=== PATIENT | male | born 1970 | race Caucasian/White ===

== ENCOUNTER → 2017-07-23 | Outpatient (CLI) | payer MEDICARE, OTHER ==
--- NOTE | 2017-07-23 19:16 | MR ---
EXAMINATION TYPE: MR lumbar spine wo con DATE OF EXAM: 07/23/2017 COMPARISON: 05/14/2015 HISTORY: 47-year-old male with low back pain TECHNIQUE: Multiplanar, multisequence images of the lumbar spine were acquired. FINDINGS: Vertebral body heights are preserved and alignment maintained. No suspicious bone marrow replacement. Conus medullaris is normal. Degenerative disc disease at L4-L5 and L5-S1 characterized by increasing, now moderate disc desiccati on, mild disc space narrowing, also increased, and diffuse bulging disc. From T12 through L4 levels, no significant spinal canal or neuroforaminal stenosis. At L4-L5, diffuse disc bulge with a new superimposed central disc protrusion. Images cause overall mi ld spinal canal stenosis increased from prior. No significant neural foraminal stenosis on either ronal e. At L5-S1, diffuse disc bulge with new superimposed right paracentral disc extrusion. Similar mild spi nal canal stenosis at this level. Similar moderate right and mild left neuroforaminal stenosis. Disc material closely approaches and may abut the traversing left S1 nerve root and also not closely appro aches and may abut the traversing right S1 nerve root as well. No prevertebral or paravertebral soft tissue abnormality seen. IMPRESSION: 1. Moderate degenerative disc disease L4-L5 and L5-S1 progressed from 2015 now with greater degree of disc desiccation, mild disc height loss, and new focal disc herniations (central disc protrusion at L4-L5 and a right paracentral disc extrusion at L5-S1). These cause now mild spinal canal stenoses at these levels. 2. Similar moderate right and mild left neuroforaminal stenosis at L5-S1. However, disc material now closely approaches and may abut the bilateral traversing S1 nerve roots at this level.
== END | disposition home or self-care (01) ==
LOC: RADMRIMAIN 17:12
PROVIDERS: ATTEND Internal Medicine
DX: M48.07 Spinal stenosis, lumbosacral region (principal); M51.36 Other intervertebral disc degeneration, lumbar region; M51.27 Other intervertebral disc displacement, lumbosacral region
CPT/HCPCS: 72148

== ENCOUNTER 2024-01-17 23:15 | Emergency (ER) | payer MEDICARE, OTHER ==
[2024-01-17 23:21] VITALS: TEMP 99.2
--- NOTE | 2024-01-17 23:48 | ED ---
General Adult HPI - General Chief complaint: Urogenital Stated complaint: groin issue Time Seen by Provider: 01/17/24 23:29 Source: patient Mode of arrival: ambulatory Limitations: no limitations - History of Present Illness Initial comments: Patient is 54-year-old man who presents to the evaluation of swelling in the left inguinal area. The patient states that he noticed swelling in his groin starting about a week ago. He states that it has progressively gotten larger and is now causing pain. Patient relates that he had a similar episode about 2 years ago and that the [facility] clinic treated him with antibiotics and it resolved. Patient has not noted any change in urination or bowel movements. No fever or chills. No vomiting or other symptoms Onset/Timin -: week(s) Location: abdomen Radiation: non-radiation Quality: aching Consistency: constant Improves with: none Worsens with: movement Associated Symptoms: denies other symptoms Treatments Prior to Arrival: none - Related Data Home Medications Medication Instructions Recorded Confirmed Albuterol Nebulized [Ventolin 2.5 mg INHALATION QID PRN 01/05/14 02/23/14 Nebulized] Amitriptyline HCl [Elavil] 25 mg PO HS 01/05/14 02/24/14 Aspirin 81 mg PO DAILY 01/05/14 02/24/14 Divalproex Sodium [Depakote ER] 1,000 mg PO BID 01/05/14 02/23/14 Fexofenadine HCl 180 mg PO DAILY 01/05/14 02/24/14 Furosemide [Lasix] 20 mg PO BID 01/05/14 02/24/14 Gabapentin [Neurontin] 600 mg PO QID 01/05/14 02/24/14 Lisinopril-Hctz 10-12.5 mg 1 each PO DAILY 01/05/14 02/24/14 [Zestoretic 10-12.5] Lovastatin [Mevacor] 40 mg PO HS 01/05/14 02/24/14 Nabumetone 750 mg PO BID 01/05/14 02/24/14 Nitroglycerin Sl Tabs [Nitrostat] 0.4 mg SUBLINGUAL Q5M PRN 01/05/14 02/23/14 OLANZapine [ZyPREXA] 10 mg PO DAILY 01/05/14 02/24/14 Omeprazole [PriLOSEC] 20 mg PO AC-BID 01/05/14 02/24/14 Potassium Chloride [Klor-Con 10] 10 meq PO DAILY 01/05/14 02/24/14 Sucralfate [Carafate] 1 gm PO AC-TID 01/05/14 02/24/14 Tolterodine Tartrate [Detrol LA] 4 mg PO DAILY 01/05/14 02/24/14 Venlafaxine HCl [Effexor] 75 mg PO BID 01/05/14 02/24/14 metFORMIN HCL [Glucophage] 500 mg PO DAILY 01/05/14 02/24/14 modafiniL [Provigil] 200 mg PO DAILY 01/05/14 02/24/14 oxyCODONE-APAP 5-325MG [Percocet 1 each PO Q6HR PRN 01/05/14 02/23/14 5-325 mg] rOPINIRole HCL [Requip] 4 mg PO BID 01/05/14 02/24/14 raNITIdine HCL [Zantac] 150 mg PO BID 01/05/14 02/24/14 Previous Rx's Medication Instructions Recorded Sulfamethox-Tmp 800-160Mg [Bactrim 1 each PO Q12HR 7 Days tab 02/24/14 DS 800-160 mg] Cyclobenzaprine [Flexeril] 10 mg PO TID #14 tab 03/26/15 Hydrocodone/Acetaminophen [[place] 1 each PO Q6HR PRN #20 tab 03/26/15 5-325] Ibuprofen [Motrin] 800 mg PO Q6HR PRN #20 tab 03/26/15 Sulfamethox-Tmp 800-160Mg [Bactrim 2 each PO Q12HR #28 tab 01/18/24 Ds] Allergies Allergy/AdvReac Type Severity Reaction Status Date / Time Iodinated Contrast Media AdvReac Unknown Verified 01/17/24 23:22 [Iodinated Contrast Media - IV Dye] morphine AdvReac Unknown Verified 01/17/24 23:22 Review of Systems ROS Statement: Those systems with pertinent positive or pertinent negative responses have been documented in the HPI. ROS Other: All systems not noted in ROS Statement are negative. Constitutional: Denies: fever, chills Respiratory: Denies: cough, dyspnea Cardiovascular: Denies: chest pain, palpitations, edema Gastrointestinal: Reports: as per HPI, abdominal pain. Denies: nausea, vomiting, diarrhea, constipation Genitourinary: Denies: dysuria, frequency, hematuria, testicular pain, testicular mass Musculoskeletal: Denies: back pain Skin: Denies: rash Neurological: Denies: headache Past Medical History Past Medical History: Diabetes Mellitus, Hyperlipidemia, Hypertension, Myocardial Infarction (LA) Additional Past Medical History / Comment(s): back pain, leg pain, neuropathy, degenerative disc disease, chronic right olecranon bursitis Last Myocardial Infarction Date:: unknown History of Any Multi-Drug Resistant Organisms: None Reported Past Surgical History: Heart Catheterization, Orthopedic Surgery Additional Past Surgical History / Comment(s): vascetomy, cyst on tailbone, Past Psychological History: Bipolar, Schizophrenia Past Alcohol Use History: None Reported Past Drug Use History: None Reported General Exam Limitations: no limitations General appearance: alert, in no apparent distress Head exam: Present: atraumatic, normocephalic Eye exam: Present: normal appearance. Absent: scleral icterus, conjunctival injection Neck exam: Present: normal inspection Respiratory exam: Present: normal lung sounds bilaterally. Absent: respiratory distress, wheezes, rales, rhonchi, stridor, accessory muscle use Cardiovascular Exam: Present: regular rate, normal rhythm, normal heart sounds. Absent: systolic murmur, diastolic murmur, rubs, gallop GI/Abdominal exam: Present: soft, tenderness (Left inguinal). Absent: distended, guarding, rebound, rigid, mass, hernia exam: Present: normal inspection, vertical testicular lie. Absent: testicular tenderness, urethral discharge, scrotal swelling Extremities exam: Present: normal inspection, normal capillary refill. Absent: pedal edema, calf tenderness Back exam: Present: normal inspection. Absent: CVA tenderness (R), CVA tenderness (L) Neurological exam: Present: alert Skin exam: Present: warm, dry, intact, normal color. Absent: rash Course Vital Signs 01/17/24 01/18/24 23:18 03:20 Temperature 99.2 F Pulse Rate 55 L 88 Respiratory 18 16 Rate Blood Pressure 129/89 154/99 O2 Sat by Pulse 93 L 98 Oximetry Medical Decision Making - Medical Decision Making The patient had CT scan of the abdomen pelvis which I interpreted as negative for acute hernia. Negative for abscess Was pt. sent in by a medical professional or institution (Dr., PA, ORTHOPAEDIC TECHNOLOGIST, urgent care, hospital, or long-term...) When possible be specific @ -[No] Did you speak to anyone other than the patient for history (EMS, parent, family, police, friend...)? What history was obtained from this source @ -[No] Did you review nursing and triage notes (agree or disagree)? Why? @ -[I reviewed and agree with nursing and triage notes] Were old charts reviewed (outside hosp., previous admission, EMS record, old EKG, old radiological studies, urgent care reports/EKG's, long-term records)? Report findings @ -[No old charts were reviewed] Differential Diagnosis (chest pain, altered mental status, abdominal pain women, abdominal pain men, vaginal bleeding, weakness, fever, dyspnea, syncope, headache, dizziness, GI bleed, back pain, seizure, CVA, palpatations, mental health, musculoskeletal)? @ -[Differential Abdominal Pain Men: Appendicitis, cholecystitis, diverticulosis, ischemic bowel, pancreatitis, hepatitis, UTI, gastroenteritis, AAA, incarcerated hernia, bowel obstruction, constipation, inflammatory bowel, hepatitis, peptic ulcer disease, splenic infarction, perforated viscus, testicular torsion, this is not meant to be an all-inclusive list EKG interpreted by me (3pts min.). @ -[As above] X-rays interpreted by me (1pt min.). @ -[None done] CT interpreted by me (1pt min.). @ -[I interpreted as above U/S interpreted by me (1pt. min.). @ -[None done] What testing was considered but not performed or refused? (CT, X-rays, U/S, labs)? Why? @ -[None] What meds were considered but not given or refused? Why? @ -[None] Did you discuss the management of the patient with other professionals (professionals i.e. RUIZ Rosario, ORTHOPAEDIC TECHNOLOGIST, lab, RT, psych nurse, clinical social worker, transformer stock clerk, teacher, guest relations officer, catalytic case operator)? Give summary @ -[No] Was smoking cessation discussed for >3mins.? @ -[No] Was critical care preformed (if so, how long)? @ -[No] Were there social determinants of health that impacted care today? How? (Homelessness, low income, unemployed, alcoholism, drug addiction, transportation, low edu. Level, literacy, decrease access to med. care, nursing home, rehab)? @ -[No] Was there de-escalation of care discussed even if they declined (Discuss DNR or withdrawal of care, Hospice)? DNR status @ -[No] What co-morbidities impacted this encounter? (DM, HTN, Smoking, COPD, CAD, Cancer, CVA, ARF, Chemo, Hep., AIDS, mental health diagnosis, sleep apnea, morbid obesity)? @ -[None] Was patient admitted / discharged? Hospital course, mention meds given and route, prescriptions, significant lab abnormalities, going to OR and other pertinent info. @ -[This patient is 54-year-old man here to have evaluation of left groin pain and swelling. The exam slightly limited as the patient was guarding the area. CT scan is obtained to rule out abscess that requires surgical drainage or the possibility of inguinal hernia. The patient is started on antibiotics. The appropriate further care and follow-up as discussed as well as return parameters Undiagnosed new problem with uncertain prognosis? @ -[No] Drug Therapy requiring intensive monitoring for toxicity (Heparin, Nitro, Insulin, Cardizem)? @ -[No] Were any procedures done? @ -[No] Diagnosis/symptom? @ -[Acute left inguinal cellulitis Acute, or Chronic, or Acute on Chronic? @ -[Acute Uncomplicated (without systemic symptoms) or Complicated (systemic symptoms)? @ -[Uncomplicated Side effects of treatment? @ -[No] Exacerbation, Progression, or Severe Exacerbation? @ -[No] Poses a threat to life or bodily function? How? (Chest pain, [place], [place], pneumonia, PE, COPD, DKA, ARF, appy, cholecystitis, CVA, Diverticulitis, Homicidal, Suicidal, threat to staff... and all critical care pts) @ -[N there is a low risk, the patient does require close follow-up or return to the emergency department and this was discussed Disposition Clinical Impression: Cellulitis Disposition: HOME SELF-CARE Condition: Good Instructions (If sedation given, give patient instructions): Cellulitis (ED) Prescriptions: Sulfamethox-Tmp 800-160Mg [Bactrim Ds] 2 each PO Q12HR #28 tab Is patient prescribed a controlled substance at d/c from ED?: No Referrals: Rosalinda Key MD [Primary Care Provider] - 1-2 days
--- NOTE | 2024-01-18 00:18 | CT ---
EXAMINATION TYPE: CT abdomen pelvis wo con DATE OF EXAM: 01/18/2024 HISTORY: Pt states that he has a lump beside his groin on the left side. Pt states that he has dealt with this before. Pt states this issue is causing severe pain. CT DLP: 1308.2 mGycm. Automated Exposure Control for Dose Reduction was Utilized. TECHNIQUE: CT scan of the abdomen and pelvis is performed without oral or IV contrast. COMPARISON: NONE FINDINGS: Within the limitations of a non-contrast study, the following observations are made. LUNG BASES: No significant abnormality is appreciated. LIVER/GB: Liver is heterogeneously hypodense consistent with fatty infiltrated hepatocellular disease . Contracted gallbladder. PANCREAS: No significant abnormality is seen. SPLEEN: No significant abnormality is seen. ADRENALS: No significant abnormality is seen. KIDNEYS: No renal stones or hydronephrosis is seen bilaterally. Subcentimeter rounded exophytic focus upper pole right kidney coronal image 83 versus tiny hemorrhagic cyst. BOWEL: No abnormal small or large bowel dilatation. GENITAL ORGANS: Prostate gland is not enlarged. Scattered bilateral tiny pelvic phleboliths are seen LYMPH NODES: No greater than 1cm abdominal or pelvic lymph nodes are appreciated. A few subcentimeter calcified left-sided mesenteric lymph nodes. OSSEOUS STRUCTURES: No significant abnormality is seen. OTHER: Ill-defined fluid and fat stranding in the left inguinal region extending to the skin surface with more nodular soft tissue density. No well formed thick walled fluid collection or drainable absc ess.. IMPRESSION: There is left groin acute soft tissue infection or cellulitis. No groin hernia. No absces s.
[2024-01-18] MEDS: SULFAMETHOX-TMP 800-160MG 1 EACH TAB PO STA (01:52)
[2024-01-18 03:25] VITALS: BP 154/99; PULSE 88; RESP 16
== END 2024-01-18 04:20 | disposition home or self-care (01) ==
LOC: EC 23:15
DX: L02.91 Cutaneous abscess, unspecified
CPT/HCPCS: 74176; 99284